=== PATIENT | female | born 1965 | race Caucasian/White ===

== ENCOUNTER 2019-09-16 15:00 | Outpatient (RCR) | payer MEDICARE, MEDICAID, SELFPAY | END 2019-09-16 23:59 | disposition home or self-care (01) | LOC: DC 15:00 | PROVIDERS: PCP Family Medicine; Visit Provider Specialist | DX: Z71.3 Dietary counseling and surveillance (principal); E11.9 Type 2 diabetes mellitus without complications; E66.3 Overweight; Z68.38 Body mass index [BMI] 38.0-38.9, adult | CPT/HCPCS: 97802; G0108 ==

== ENCOUNTER 2020-04-15 20:06 | Emergency (ER) | payer BC, MEDICAID, SELFPAY ==
[2020-04-15 20:08] VITALS: BP 152/101; PULSE 104; RESP 15; TEMP 36.4; O2SAT 99; BMI 34.8
--- NOTE | 2020-04-15 20:26 | ED.VIS.FALL ---
History of Present Illness Chief Complaint: Upper Extremity Injury Informant: Patient Occurred: Today - JPTA Mechanism/Context: Same level fall - pulled down to ground by her dog, - Location: left hand Quality of Pain: Aching Current Severity: Moderate Maximum Severity: Severe Worsened by: movement Relieved by: remaining still Associated Symptoms: Negative for: Parasthesias, Weakness, Loss of function, Inability to ambulate, Loss of consciousness, Amnesia Narrative: Patient is left-hand dominant, had a fracture to her left hand in the past and had a repeat injury to that area in the region of her thumb and index finger but more toward the base of her hand, tonight when she was pulled to the ground by her dog while she was walking them on leash. Denies any other injury. Past Medical History - Allergies and Home Meds Allergies/Adverse Reactions: Allergies Ognczky-Skj-Tgt Reductase Inhibitor Allergy (Verified 04/15/20 20:08) NEEDS FOLLOW-UP bittia Allergy (Uncoded 04/15/20 20:08) Vomiting Primary Care Physician: Kel Brown MD [Primary Care Provider] - As Needed Past Medical History: None Drugs: None Review of Systems General: Denies: Chills, Fever, Sweats Musculoskeletal: Reports: Extremity Pain Skin: Denies: Rash, Wounds Neurological: Denies: Headache, Weakness, Numbness Physical Exam Vital Signs/Narrative: Vital Signs Temp Pulse Resp BP Pulse Ox 04/15/20 20:08 97.6 F L 104 H 15 152/101 H 99 Inital Vital Signs reviewed: Yes General: Well nourished, Well developed, - - well-appearing NAD Head: Normocephalic, Atraumatic Extremeties: For age motion throughout all joints of left hand, tender in the region of the thumb and index finger metacarpals. No carpus or distal radius/ulna tenderness. Motion of the wrist. All flexors and extensors intact. Skin: Normal color, No rash, No Trauma Neurological: Alert, Oriented x3, Cranial nerves II-XII grossly intact, Normal Strength, Normal Sensation, Normal Gait Psychological: Normal affect, Normal Mood Diagnostic/Tx/Re-eval Clinical Impression(s) from Imaging Studies Hand X-Ray 04/15/20 20:30 IMPRESSION: Subluxation of the first carpal metacarpal articulation suggestive of ligamentous injury. Electronically Signed: Alexandrea Rosas MD at 22:04 EDT , Service support , - Medical Decision Making On my interpretation 3 views of the left hand are negative for any acute fracture dislocation. Results are as above, but she is moving her thumb without difficulty, hence I suspect this is a chronic finding. Patient is reassured, given an ice pack, dose of Naprosyn, and appropriate discharge instructions and follow-up. ED Disposition - Plan for ED Patient: Disposition: Home or Assisted Living Diagnosis: Contusion of left hand Instructions: ED HAND CONTUSION Referrals: Kel Brown MD [Primary Care Provider] - As Needed
--- NOTE | 2020-04-15 20:30 | RAD_ITS ---
STUDY: X-RAY - LEFT HAND REASON FOR EXAM: Female, 54 years old patient with pain to 1st metacarpal area. Patient has history of injury to area three months ago. Patient re-injured today TECHNIQUE: 3 view(s) of the hand. COMPARISON: Prior comparison studies are not available for review at this time. FINDINGS: There is joint space narrowing of the radiocarpal articulation consistent with degenerative arthrosis. Normal distal radioulnar joint. Normal visualized carpal bones. Normal carpal articulations There is subluxation of the first carpal metacarpal reticulation possibly secondary to ligamentous injury. Normal second through fifth carpometacarpal joints. Normal metacarpi. Normal metacarpophalangeal joint of the thumb. Normal interphalangeal joint of the thumb. Normal proximal and distal phalanges of the thumb. Normal metacarpophalangeal joints of the second through fifth fingers. Normal proximal and distal interphalangeal joints of the second through fifth fingers. Normal phalanges of the second through fifth fingers. The soft tissue structures are unremarkable. RAD/Hand Min 3 Views IMPRESSION: Subluxation of the first carpal metacarpal articulation suggestive of ligamentous injury. Electronically Signed: Alexandrea Rosas MD at 22:04 EDT , Service support ,
[2020-04-15] MEDS: Naproxen 500 MG Tablet PO (21:16)
[2020-04-15 21:17] VITALS: BP 145/86; PULSE 82; RESP 15; O2SAT 96
== END 2020-04-15 21:18 | disposition home or self-care (01) ==
PROVIDERS: Emergency Provider Emergency Medicine; PCP Family Medicine
DX: S60.222A Contusion of left hand, initial encounter (principal); W18.30XA Fall on same level, unspecified, initial encounter; Y93.K1 Activity, walking an animal; Y92.89 Other specified places as the place of occurrence of the external cause; Y99.8 Other external cause status
CPT/HCPCS: 73130; 99283

== ENCOUNTER → 2020-05-24 | Outpatient (CLI) | payer MEDICARE, MEDICAID, SELFPAY | END | disposition home or self-care (01) | LOC: MTDU 17:34 | PROVIDERS: PCP Family Medicine; Referring Provider Family Medicine; Visit Provider Family Medicine | DX: U07.1 COVID-19 (principal) | CPT/HCPCS: 87635; C9803; U0003 ==

== ENCOUNTER 2020-12-08 14:23 | Emergency (ER) | payer MEDICARE, MEDICAID, SELFPAY ==
[2020-12-08 14:25] VITALS: BP 164/101; PULSE 106; RESP 17; TEMP 35.7; O2SAT 96; BMI 32.5
--- NOTE | 2020-12-08 14:48 | RAD_ITS ---
STUDY: X-RAY - RIGHT FOOT CLINICAL: Female, 55 years old. INJURY TECHNIQUE: 3 view(s) of the foot. COMPARISON: None. FINDINGS: Normal talus, calcaneus, and tarsal bones. Normal visualized subtalar, talonavicular, calcaneocuboid, tarsal and tarsometatarsal articulations. Normal metatarsi. There is degenerative arthrosis of the metatarsophalangeal joint of the hallux . Normal tibial and fibular sesamoid bones. Normal interphalangeal joint of the great toe. Normal phalanges of the great toe. Normal second through fifth metatarsophalangeal joints. Normal interphalangeal joints and phalanges of the lesser toes. The soft tissue structures are unremarkable. RAD/Foot min 3 Views IMPRESSION: Degenerative changes at the first metatarsophalangeal joint. Electronically Signed: Narciso Jean-Baptiste MD at 15:02 EDT , Service support ,
--- NOTE | 2020-12-08 15:17 | ED.VIS.LOWEX ---
HPI History of Present Illness Chief Complaint: Lower Extremity Injury Informant: patient Narrative Narrative: Patient has pain at the fourth and fifth toes on the right foot. She states they got caught in the door at a local restaurant. This occurred about . She sustained some abrasions and skin tears of the fourth and fifth toe. Pain is localized to this area. She denies any ankle or knee pain. Pain is worse with walking. Tetanus is updated. She is concerned because she is a diabetic. PFSH PFSH Home Medications albuterol sulfate 2 puff IH Q4H PRN PRN 04/15/20 [History Last Taken Unknown] aripiprazole 15 mg PO DAILY 04/15/20 [History Last Taken Unknown] bupropion HCl 300 mg PO DAILY 04/15/20 [History Last Taken Unknown] duloxetine 60 mg PO DAILY 04/15/20 [History Last Taken Unknown] hydroxyzine pamoate 50 mg PO Q4H PRN PRN 04/15/20 [History Last Taken Unknown] insulin NPH and regular human 80 units SQ BID 04/15/20 [History Last Taken Unknown] Allergy/AdvReac Type Severity Reaction Status Date / Time Cnioooz-Jbu-Ipy Reductase Allergy NEEDS Verified 12/08/20 14:24 Inhibitor FOLLOW-UP bittia Allergy Vomiting Uncoded 12/08/20 14:24 Social History Smoking Status: Current every day smoker ROS ROS ED Constitutional Constitutional ED: Denies chills or fever(s) Eyes Eyes: Denies blurry vision, change in vision or diplopia ENT ENT ED: Denies ear pain, rhinorrhea or sore throat Cardiovascular Cardiovascular: Denies chest pain or palpitations Respiratory/Chest Respiratory/Chest: Denies cough, dyspnea or sputum Gastrointestinal Gastrointestinal: Denies abdominal pain, diarrhea, nausea or vomiting Genitourinary Genitourinary ED: Denies dysuria, hematuria or urinary frequency Musculoskeletal Musculoskeletal: Reports other Details: Right foot pain Integumentary Denies change in pigmentation or rash Neurologic Neurologic: Denies headache(s), numbness or weakness Psychiatric Psychiatric: Denies anxiety or depression Endocrine Endocrinology: Denies polydipsia or polyuria EXAM Physical Exam Const Vital Signs: 12/08/20 14:25 Temperature 96.2 F L Temperature Source Temporal Pulse Rate 106 H Respiratory Rate 17 Blood Pressure 164/101 H Blood Pressure Mean 122 Pulse Ox 96 Oxygen Delivery Method Room Air Positive well nourished and well developed General Appearance ED: well developed HEENT normocephalic and atraumatic Eyes PERRL Neck full ROM Extremity Extremity Narrative: Right foot exam reveals tenderness of the fourth and fifth toes. No deformity seen. She has small skin tears to these toes on the dorsal side. No lacerations were seen. There is no fifth metatarsal or malleoli or tenderness. Neuro oriented x3 and CN's II-XII intact bilaterally Sensorium / Orientation: alert Psych mental status grossly normal Skin Rashes: no rashes MDM MDM MDM Narrative Medical decision making narrative: X-rays of the right foot were obtained and shows no acute findings. Patient will have her wounds cleansed. I educated on local wound care and applying topical antibacterial cream to prevent infection. At this time she does not require oral antibiotics. She will follow-up with her PCP. Radiography X-Ray: Read by ED Physician, Read by Radiologist and No Fracture Diagnostic Testing: Radiology Impression Foot X-Ray 12/08/20 14:48 IMPRESSION: Degenerative changes at the first metatarsophalangeal joint. Electronically Signed: Narciso Jean-Baptiste MD at 15:02 EDT , Service support , Discharge Plan Triage Chief Complaint: Lower Extremity Injury ED Provider: Tien Dalal Dx/Rx/DC Orders Clinical Impression: Contusion of foot, right Instructions: ED Foot Contusion Prescriptions: No Action insulin NPH and regular human 100 unit/mL (70-30) suspension 80 units SQ BID RF: 0 hydroxyzine pamoate 50 MG capsule 50 mg PO Q4H PRN PRN (Reason: Anxiety) RF: 0 albuterol sulfate 90 mcg/actuation HFA aerosol inhaler 2 puff IH Q4H PRN PRN (Reason: Wheezing) RF: 0 aripiprazole 15 MG tablet 15 mg PO DAILY RF: 0 bupropion HCl 300 MG tablet extended release 24 hr 300 mg PO DAILY RF: 0 duloxetine 60 MG capsule,delayed release(DR/EC) 60 mg PO DAILY RF: 0 Primary Care Provider: Kel Brown Referrals: Kel Brown MD [Primary Care Provider] - Disposition Disposition: Home, self care
[2020-12-08 15:20] VITALS: BP 170/81; PULSE 92; RESP 16; O2SAT 97
== END 2020-12-08 15:53 | disposition home or self-care (01) ==
LOC: ED 15:32
PROVIDERS: Emergency Provider Emergency Medicine; PCP Family Medicine
DX: S90.31XA Contusion of right foot, initial encounter (principal); E11.9 Type 2 diabetes mellitus without complications; Z79.4 Long term (current) use of insulin; F17.200 Nicotine dependence, unspecified, uncomplicated; W23.0XXA Caught, crushed, jammed, or pinched between moving objects, initial encounter; Y93.89 Activity, other specified; Y92.511 Restaurant or cafe as the place of occurrence of the external cause; Y99.8 Other external cause status
CPT/HCPCS: 73630; 99282